=== PATIENT | male | born 1950 | race Two or more races ===

== ENCOUNTER 2021-05-11 18:45 | Emergency (ER) | payer BC, MEDICARE ==
--- NOTE | 2021-05-11 19:22 | ED Physician Documentation ---
History of Present Illness - Stated complaint Stated Complaint: MHE,LEG ISSUE - Chief complaint Chief Complaint: MHE - History obtained from History obtained from: Patient - History of Present Illness Timing: Today Pain level max: 0 Pain level now: 0 - Additonal information Additional information: Patient is a 70-year-old male, history of diabetes and heart disease. He states he has not been taking his medications regularly. He states sometimes his legs feel weak, but they are not hurting right now. He states that he has had increasing depression. He states that he used to use marijuana but is not using now. He also states that he used to drink alcohol but states he was never an alcoholic and states he has not had a drink in several weeks. He states he is homeless. He states he moved here from [place] to live with his son, but his son kicked him out about 6 months ago. He states he sees a doctor at [facility]. He does not know what medications he takes. He states he does not see the point in living anymore and he wants to walk out into traffic and get hit by a car. Review of Systems Ten Systems: 10 systems reviewed and negative Constitutional: denies: Fever, Chills Cardiac: denies: Chest pain / pressure Respiratory: denies: Cough GI: denies: Abdominal Pain, Nausea, Vomiting, Diarrhea Skin: denies: Rash Musculoskeletal: denies: Neck pain, Back pain Neurologic: denies: Headache Psychiatric: reports: Depressed, Suicidal PD PAST MEDICAL HISTORY - Past Medical History Past Medical History: Yes Cardiovascular: High cholesterol, Coronary artery disease Endocrine/Autoimmune: Type 2 diabetes Psych: Depression, Anxiety - Present Medications Home Medications: Ambulatory Orders Medication Instructions Recorded Confirmed Apixaban [Eliquis] 5 mg PO BID 05/11/21 05/11/21 Insulin Glargine [Lantus Solostar] 05/11/21 Insulin Lispro [Humalog] 05/11/21 - Allergies Allergies/Adverse Reactions: Allergies Allergy/AdvReac Type Severity Reaction Status Date / Time No Known Drug Allergies Allergy Verified 05/11/21 19:05 - Living Situation Living Situation: reports: With family Living Arrangement: reports: At home PD ED PE NORMAL - Vitals Vital signs reviewed: Yes - General General: Alert and oriented X 3, No acute distress, Well developed/nourished - HEENT HEENT: PERRL, Moist mucous membranes, Pharynx benign - Neck Neck: Supple, no meningeal sign - Cardiac Cardiac: RRR, Strong equal pulses - Respiratory Respiratory: No respiratory distress, Clear bilaterally - Abdomen Abdomen: Soft, Non tender, Non distended - Back Back: No CVA TTP, No spinal TTP - Derm Derm: Warm and dry - Extremities Extremities: No edema, No calf tenderness / cord - Neuro Neuro: Alert and oriented X 3, 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, No motor deficit, No sensory deficit, Normal speech - Psych Psych: Normal mood, Normal affect Results - Vitals Vitals: Vital Signs - 24 hr 05/11/21 18:59 Temperature 36.2 C L Heart Rate 73 Respiratory 16 Rate Blood Pressure 157/79 H O2 Saturation 99 Oxygen O2 Source Room air - Labs Labs: Laboratory Tests 05/11/21 05/11/21 05/11/21 19:38 19:38 19:38 WBC 9.3 RBC 5.17 Hgb 14.9 Hct 46.9 MCV 90.7 MCH 28.8 MCHC 31.8 L RDW 13.9 Plt Count 257 MPV 11.8 H Neut # (Auto) 6.3 Lymph # (Auto) 1.9 Sioux # (Auto) 0.8 Eos # (Auto) 0.2 Baso # (Auto) 0.1 Absolute Nucleated RBC 0.00 Nucleated RBC % 0.0 Sodium 136 Potassium 4.3 Chloride 101 Carbon Dioxide 25 Anion Gap 10.0 BUN 43 H Creatinine 2.6 H Estimated GFR (MDRD) 25 L Glucose 231 H Calcium 8.8 Total Bilirubin 0.8 AST 73 H ALT 49 Alkaline Phosphatase 84 Total Protein 6.7 Albumin 3.6 Globulin 3.1 Albumin/Globulin Ratio 1.2 Lipase 76 H TSH 4.98 Urine Color Urine Clarity Urine pH Ur Specific [place] Urine Protein Urine Glucose (UA) Urine Ketones Urine Occult Blood Urine Nitrite Urine Bilirubin Urine Urobilinogen Ur Leukocyte Esterase Urine RBC Urine WBC Ur Squamous Epith Cells Urine Bacteria Urine Casts Ur Microscopic Review Urine Culture Comments Nasal Adenovirus (PCR) Nasal B. parapertussis DNA (PCR) Nasal Coronavir 229E PCR Nasal Coronavir HKU1 PCR Nasal Coronavir NL63 PCR Nasal Coronavir OC43 PCR Nasal Enterovir/Rhinovir PCR Nasal Influenza B PCR Nasal Influenza A PCR Nasal Parainfluen 1 PCR Nasal Parainfluen 2 PCR Nasal Parainfluen 3 PCR Nasal Parainfluen 4 PCR Nasal RSV (PCR) Nasal B.pertussis DNA PCR Nasal C.pneumoniae (PCR) Yehuda Human Metapneumo PCR Nasal M.pneumoniae (PCR) Nasal SARS-CoV-2 (PCR) Salicylates < 6.0 Urine Opiates Screen Ur Oxycodone Screen Urine Methadone Screen Ur Propoxyphene Screen Acetaminophen < 10 L Ur Barbiturates Screen Ur Tricyclics Screen Ur Phencyclidine Scrn Ur Amphetamine Screen U Methamphetamines Scrn U Benzodiazepines Scrn Urine Cocaine Screen U Cannabinoids Screen Ethyl Alcohol < 5.0 05/11/21 05/11/21 19:38 19:38 WBC RBC Hgb Hct MCV MCH MCHC RDW Plt Count MPV Neut # (Auto) Lymph # (Auto) Sioux # (Auto) Eos # (Auto) Baso # (Auto) Absolute Nucleated RBC Nucleated RBC % Sodium Potassium Chloride Carbon Dioxide Anion Gap BUN Creatinine Estimated GFR (MDRD) Glucose Calcium Total Bilirubin AST ALT Alkaline Phosphatase Total Protein Albumin Globulin Albumin/Globulin Ratio Lipase TSH Urine Color YELLOW Urine Clarity CLEAR Urine pH 5.0 Ur Specific [place] >=1.030 H Urine Protein >=300 H Urine Glucose (UA) 500 H Urine Ketones NEGATIVE Urine Occult Blood LARGE H Urine Nitrite NEGATIVE Urine Bilirubin NEGATIVE Urine Urobilinogen 0.2 (NORMAL) Ur Leukocyte Esterase NEGATIVE Urine RBC 6-10 H Urine WBC 0-3 Ur Squamous Epith Cells RARE Squamous Urine Bacteria Rare Urine Casts 6-10 Fine Granular Ur Microscopic Review INDICATED Urine Culture Comments NOT INDICATED Nasal Adenovirus (PCR) NOT DETECTED Nasal B. parapertussis DNA (PCR) NOT DETECTED Nasal Coronavir 229E PCR NOT DETECTED Nasal Coronavir HKU1 PCR NOT DETECTED Nasal Coronavir NL63 PCR NOT DETECTED Nasal Coronavir OC43 PCR NOT DETECTED Nasal Enterovir/Rhinovir PCR NOT DETECTED Nasal Influenza B PCR NOT DETECTED Nasal Influenza A PCR NOT DETECTED Nasal Parainfluen 1 PCR NOT DETECTED Nasal Parainfluen 2 PCR NOT DETECTED Nasal Parainfluen 3 PCR NOT DETECTED Nasal Parainfluen 4 PCR NOT DETECTED Nasal RSV (PCR) NOT DETECTED Nasal B.pertussis DNA PCR NOT DETECTED Nasal C.pneumoniae (PCR) NOT DETECTED Yehuda Human Metapneumo PCR NOT DETECTED Nasal M.pneumoniae (PCR) NOT DETECTED Nasal SARS-CoV-2 (PCR) NOT DETECTED Salicylates Urine Opiates Screen NEGATIVE Ur Oxycodone Screen NEGATIVE Urine Methadone Screen NEGATIVE Ur Propoxyphene Screen NEGATIVE Acetaminophen Ur Barbiturates Screen NEGATIVE Ur Tricyclics Screen NEGATIVE Ur Phencyclidine Scrn NEGATIVE Ur Amphetamine Screen NEGATIVE U Methamphetamines Scrn NEGATIVE U Benzodiazepines Scrn NEGATIVE Urine Cocaine Screen NEGATIVE U Cannabinoids Screen POSITIVE H Ethyl Alcohol PD MEDICAL DECISION MAKING - ED course Complexity details: reviewed results, re-evaluated patient, considered differential, d/w patient ED course: Patient with depression and suicidal ideation. He will be signed out to the oncoming emergency department physician awaiting telepsychiatry consult and/or social work consult. Patient is calm and cooperative here. He is here voluntar josé miguel. He is high risk for suicidal behavior. This document was made in part using voice recognition software. While efforts are made to proofread this document, sound alike and grammatical errors may occur. Departure - Departure Clinical Impression: Suicidal ideation Depression Qualifiers: Depression Type: unspecified Qualified Code(s): F32.A - Depression, unspecified Condition: Stable
[2021-05-11 19:43] LABS: BASOPHILS # (AUTO) 0.1 10^3/uL (0.0-0.1); BASOPHILS % (AUTO) 0.9 %; EOSINOPHILS # (AUTO) 0.2 10^3/uL (0.0-0.7); EOSINOPHILS % (AUTO) 1.6 %; HCT - HEMATOCRIT 46.9 % (42.0-52.0); HGB - HEMOGLOBIN 14.9 g/dL (14.0-18.0); LYMPHOCYTES # (AUTO) 1.9 10^3/uL (1.5-3.5); LYMPHOCYTES % (AUTO) 20.5 %; MEAN CORPUSCULAR HEMOGLOBIN 28.8 pg (27.0-31.0); MEAN CORPUSCULAR HGB CONC 31.8 g/dL (32.0-36.0); MEAN CORPUSCULAR VOLUME 90.7 fL (80.0-94.0); MEAN PLATELET VOLUME 11.8 fL (7.4-11.4); MONOCYTES # (AUTO) 0.8 10^3/uL (0.0-1.0); MONOCYTES % (AUTO) 8.3 %; MUDS CUTOFF CONCENTRATIONS CUTOFF CONC BELOW:; NEUTROPHILS # (AUTO) 6.3 10^3/uL (1.5-6.6); NEUTROPHILS % (AUTO) 68.2 %; PLT - PLATELET COUNT 257 10^3/uL (130-450); RED BLOOD COUNT 5.17 10^6/uL (4.70-6.10); RED CELL DISTRIBUTION WIDTH 13.9 % (12.0-15.0); WHITE BLOOD COUNT 9.3 x10^3/uL (4.8-10.8)
[2021-05-11 19:46] LABS: BILIRUBIN,URINE NEGATIVE (NEGATIVE); GLUCOSE, URINE (UA) 500 mg/dL (NEGATIVE); KETONES,URINE (UA) NEGATIVE (NEGATIVE); LEUKOCYTE ESTERASE, URINE NEGATIVE (NEGATIVE); NITRITE,URINE NEGATIVE (NEGATIVE); OCCULT BLOOD,URINE LARGE (NEGATIVE); PROTEIN,URINE >=300 mg/dL (NEGATIVE); UROBILINOGEN,URINE 0.2 (NORMAL) E.U./dL (NORMAL)
[2021-05-11 19:47] LABS: CLARITY,URINE CLEAR (CLEAR)
[2021-05-11 19:59] LABS: BACTERIA,URINE Rare /HPF (None Seen); SQUAMOUS EPITHELIAL CELL,UR RARE Squamous (<= Few); WBC,URINE 0-3 /HPF (0-3)
[2021-05-11 20:00] LABS: AMPHETAMINE SCREEN,URINE NEGATIVE (NEGATIVE); BARBITURATE SCREEN,UR NEGATIVE (NEGATIVE); BENZODIAZEPINES SCREEN, URINE NEGATIVE (NEGATIVE); CASTS, URINE 6-10 Fine Granular /LPF; COCAINE SCREEN URINE NEGATIVE (NEGATIVE); METHADONE SCREEN, URINE NEGATIVE (NEGATIVE); METHAMPHETAMINES SCREEN, URINE NEGATIVE (NEGATIVE); OPIATE SCREEN, URINE NEGATIVE (NEGATIVE); OXYCODONE SCREEN, URINE NEGATIVE (NEGATIVE); PROPOXYPHENE SCREEN, URINE NEGATIVE (NEGATIVE); THC CANNABINOID SCREEN, URINE POSITIVE (NEGATIVE); TRICYCLIC ANTIDEPRESSANT,URINE NEGATIVE (NEGATIVE)
[2021-05-11 20:01] LABS: ACETAMINOPHEN < 10 ug/mL (10-30); ALBUMIN 3.6 g/dL (3.2-5.5); ALBUMIN/GLOBULIN RATIO 1.2 (1.0-2.2); ALKALINE PHOSPHATASE 84 IU/L (42-121); ALT ALANINE AMINOTRANSFERASE 49 IU/L (10-60); AST ASPARTATE AMINOTRANSFERASE 73 IU/L (10-42); BILIRUBIN,TOTAL 0.8 mg/dL (0.2-1.0); BUN - BLOOD UREA NITROGEN 43 mg/dL (6-20); CALCIUM 8.8 mg/dL (8.5-10.3); CARBON DIOXIDE - CO2 25 mmol/L (21-32); CHLORIDE 101 mmol/L (101-111); CREATININE 2.6 mg/dL (0.6-1.2); ETOH - ETHANOL < 5.0 mg/dL; GFR - MDRD 25 (>89); GLUCOSE 231 mg/dL (70-100); LIPASE 76 U/L (22-51); POTASSIUM 4.3 mmol/L (3.5-5.0); SALICYLATE < 6.0 mg/dL; SODIUM 136 mmol/L (135-145); TOTAL PROTEIN 6.7 g/dL (6.7-8.2)
[2021-05-11 20:37] LABS: B. PARAPERTUSSIS- RESP PCR PAN NOT DETECTED; B. PERTUSSIS- RESP PCR PANEL NOT DETECTED; C. PNEUMONIAE- RESP PCR PANEL NOT DETECTED; CORONAVIRUS 229E-RESP PCR NOT DETECTED; CORONAVIRUS HKU1-RESP PCR NOT DETECTED; CORONAVIRUS NL63-RESP PCR NOT DETECTED; CORONAVIRUS OC43-RESP PCR NOT DETECTED; HUMAN METAPNEUMOVIRUS NOT DETECTED; INFLUENZA A- RESP PCR PANEL NOT DETECTED; INFLUENZA B - RESP PCR PANEL NOT DETECTED; M. PNEUMONIAE- RESP PCR PANEL NOT DETECTED; PARAINFLUENZA VIRUS 1 NOT DETECTED; PARAINFLUENZA VIRUS 2 NOT DETECTED; PARAINFLUENZA VIRUS 3 NOT DETECTED; PARAINFLUENZA VIRUS 4 NOT DETECTED; RHINOVIRUS/ENTEROVIRUS NOT DETECTED; RSV- RESP PCR PANEL NOT DETECTED; SARS-CoV-2 -RESP PCR PANEL NOT DETECTED
[2021-05-11] MEDS ORDERED: ACETAMINOPHEN 325 MG TABLET PO STA (20:53)
[2021-05-11] MEDS ORDERED: traMADol 50 MG TABLET PO STA (23:02)
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
[2021-05-12] MEDS ORDERED: LORazepam 0.5 MG TABLET PO STA (01:16)
--- NOTE | 2021-05-12 04:32 | ED Physician Documentation ---
ED Addendum - Addendum Addendum: 05/12/21 04:25 I received sign out from Dr. Snell at end of his shift, patient is awaiting telepsychiatric evaluation at time of this turn over of care. I subsequently d/w Dr. Plascencia (telepsychiatry consult) after she evaluated patient and she recommends inpatient (MHE). I discussed this with the patient and he is agreeable to inpatient treatment and understands this will require transfer to another facility, as we do not have inpatient MHE services at [facility]. Patient exhibited increasing restlessness, frequently getting out of bed, standing at bedside. At times he would read a book that he had on the bed while he was standing at bedside. When I discuss this activity with him, he says he often has restlessness at nighttime. I offered medication to help him sleep and he agrees with lorazepam; he says he does not recollect having this medication in the past but he does recall having had xanax in the past with good effect. Unfortunately, patient did not exhibit improvement in his restlessness. He remained awake, alert, oriented and conversant, providing quick and appropriate answers. At approximately 2:50 AM, I was alerted by EDRN that patient had apparently fallen at bedside, unwitnessed. I immediately evaluated patient and find him standing at bedside, NAD but c/o left hand pain, specifically at thumb and thenar eminence. He has mild TTP at base of thumb and along the thenar eminence. He has FROM of the left wrist and hand. Xrays are performed and radiologist's i nterpretation is "2mm fracture fragment seen at the level of the distal scaphoid radial volar side correlate with palpation". Splint is placed (see procedure note; velcro thumb spica). Of note, on exam just prior to placement of the splint, he has no "snuff box" tenderness. 05/12/21 04:31 [facility] has bed available; after reviewing the available information, they request troponin, although patient is not having symptoms of angina or anginal equivalent and no acute findings on EKG. The hs-tNI result is 59.7; given lack of symptoms and lack of acute EKG abnormalities (such as ST elevations), this is likely an incidental finding and doubtful that it represents an an acute cardiac event. Plan is to obtain 2-hour repeat 05/12/21 04:48 05/12/21 04:53 Patient is continuing to insist on getting out of bed. He says he is having leg cramps which he says is common for him to have at night; he says that if he doesn't get up and walk around, "they don't go away" (per patient). However, I witness several instances where he is standing at the bedside and appears to be falling asleep; he leans over and suddenly wakes up but appears to nearly fall. At this point, ED RN and I insist he get back in bed as we are concerned for his safety. He is calm and polite throughout and cooperates. Zyprexa 5mg TL is ordered with goal of helping him get comfortable in bed and possibly get some sleep; it is not being ordered as chemical restraint. The type of medication and why it is being ordered is explained to patient (by me) and he is willing to take the medication; he tells me he would appreciate any medication that will help him get some sleep 05/12/21 07:02 Care of patient turned over to Dr. Sanford at end of my shift pending disposition. Note that the repeat hs-tNI result is 63.7 which is an insignificant change from the previous result. [facility] was recontacted and they decline patient based on rising troponin Procedures - Splinting Location: left wrist Pre-Made Type: velcro Splint: thumb spica Pre-Proc Neuro Vasc Exam: normal Post-Proc Neuro Vasc Exam: normal
[2021-05-12] MEDS ORDERED: CYCLOBENZAPRINE 10 MG TABLET PO STA (04:46)
[2021-05-12] MEDS ORDERED: OLANZapine ODT 5 MG TABLET TL STA (04:53)
[2021-05-12] MEDS ORDERED: SODIUM CHLORIDE 0.9% 1,000 ML IV STA ×2 (07:23→10:40)
[2021-05-12] MEDS ORDERED: GABAPENTIN 100 MG CAPSULE PO STA (07:45)
[2021-05-12 07:59] VITALS: BP 166/98
[2021-05-12 08:03] LABS: INR 0.9 (0.8-1.2); PT - PROTHROMBIN TIME 10.3 secs (9.9-12.6)
--- NOTE | 2021-05-12 08:05 | XRAY Report ---
PROCEDURE: Hand 3 View LT INDICATIONS: fall, pain and tenderness TECHNIQUE: 3 views of the hand(s) acquired. COMPARISON: None FINDINGS: Bones: Small calcification adjacent to radial aspect of distal scaphoid is seen, suggestive of age-in determinate avulsion injury in this area. No other fracture or dislocation is seen. Osteoarthritic ch anges are noted throughout left hand and wrist joints. No suspicious bony lesions. Soft tissues: No other suspicious soft tissue calcifications. IMPRESSION: Age indeterminant avulsion injury involving radial aspect of distal scaphoid with tiny calcified frag ment. Clinical correlation is recommended. No other fracture or dislocation. 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 No discrepancies from preliminary reading. Reviewed by: Paddy Brink MD on 05/12/2021 8:03 AM PST Approved by: Paddy Brink MD on 05/12/2021 8:03 AM PST Station ID: [id number]
--- NOTE | 2021-05-12 08:06 | CT Report ---
PROCEDURE: HEAD WO INDICATIONS: fall, on eliquis TECHNIQUE: Noncontrast 4.5 mm thick angled axial sections acquired from the foramen magnum to the vertex. For r adiation dose reduction, the following was used: automated exposure control, adjustment of mA and/or kV according to patient size. COMPARISON: None FINDINGS: Image quality: Excellent. CSF spaces: Basal cisterns are patent. No extra-axial fluid collections. The ventricles are symmet priscila in size and shape. Brain: No intracranial bleeds or masses. There is cerebral volume loss for age, with resultant vent ricular and sulcal prominence. There are periventricular and deep white matter chronic small vessel ischemic changes. There is intracranial internal carotid artery atherosclerosis. Skull and face: Calvarium and visualized facial bones appear intact, without suspicious lesions. Sinuses: Visualized sinuses and mastoids are clear. IMPRESSION: 1. No CT evidence of acute intracranial pathology. No acute skull fracture. 2. Age-appropriate atrophy and mild white matter chronic small vessel ischemic changes. Reviewed by: Paddy Brink MD on 05/12/2021 8:05 AM [facility] Approved by: Paddy Brink MD on 05/12/2021 8:05 AM PST Station ID: [id number]
[2021-05-12] MEDS ORDERED: ASPIRIN CHEW 81 MG TABLET PO STA (08:12)
[2021-05-12] MEDS ORDERED: APIXABAN 5 MG TABLET PO STA (08:14)
[2021-05-12 13:38] LABS: ALBUMIN 3.3 g/dL (3.2-5.5); ALBUMIN/GLOBULIN RATIO 1.1 (1.0-2.2); BILIRUBIN,TOTAL 0.9 mg/dL (0.2-1.0); CALCIUM 8.9 mg/dL (8.5-10.3); CREATININE 2.5 mg/dL (0.6-1.2); POTASSIUM 4.1 mmol/L (3.5-5.0); TOTAL PROTEIN 6.3 g/dL (6.7-8.2)
--- NOTE | 2021-05-12 13:51 | ED Physician Documentation ---
ED Addendum - Addendum Addendum: 05/12/21 13:50 Patient is feeling better today. He still has no chest pain, shortness of breath or other symptoms of acute coronary syndrome. He does have chronic renal insufficiency which will hinder the clearance of the troponin. His Q waves on EKG do not represent an acute infarct. He is not having any evidence of acute coronary syndrome at this time. D/w Dr. Paulino, Cardiology.
--- NOTE | 2021-05-12 16:22 | ED Physician Documentation ---
ED Addendum - Addendum Addendum: 05/12/21 16:21 Patient accepted to [facility] by Dr. Funes. COBRA forms completed. Departure - Departure Disposition: [facility] Hosp/Unit DC/Xfer Clinical Impression: Suicidal ideation Depression Qualifiers: Depression Type: unspecified Qualified Code(s): F32.A - Depression, unspecified Condition: Stable
== END 2021-05-12 18:06 ==
LOC: ED 18:45
DX: F39 Unspecified mood [affective] disorder (principal); F32.A Depression, unspecified; S62.012A Displaced fracture of distal pole of navicular [scaphoid] bone of left wrist, initial encounter for closed fracture; W19.XXXA Unspecified fall, initial encounter; Y92.238 Other place in hospital as the place of occurrence of the external cause; Z59.02 Unsheltered homelessness; Z79.4 Long term (current) use of insulin; Z79.01 Long term (current) use of anticoagulants; E11.22 Type 2 diabetes mellitus with diabetic chronic kidney disease; I12.9 Hypertensive chronic kidney disease with stage 1 through stage 4 chronic kidney disease, or unspecified chronic kidney disease; N18.9 Chronic kidney disease, unspecified; Z20.822 Contact with and (suspected) exposure to COVID-19; Z91.81 History of falling
CPT/HCPCS: 36415; 70450; 73130; 80053; 80306; 80307; 81001; 83690; 84443; 84484; 85025; 85610; 87631; 93005; 99285; A9270; G0426; G0480; Q3014; 0202U; 80320; 80329; 81003; 87086; 90836